=== PATIENT | male | born 1995 | race Two or more races ===

== ENCOUNTER 2023-05-24 17:14 | Emergency (ER) | payer BC ==
[2023-05-24 17:43] VITALS: BP 135/91; PULSE 100; RESP 16; TEMP 97.8; BMI 32.5
[2023-05-24] MEDS ORDERED: IBUPROFEN 600 MG TABLET (FP) PO ONE (18:11)
[2023-05-24] MEDS ORDERED: CYCLOBENZAPRINE HCL 10 MG TABLET (FP) ONE (18:11)
[2023-05-24] MEDS ORDERED: ACETAMINOPHEN 325 MG TABLET (FP) ONE (18:12)
[2023-05-24] MEDS: CYCLOBENZAPRINE HCL 10 MG TABLET (FP) PO ONE (18:21)
[2023-05-24] MEDS: IBUPROFEN 600 MG TABLET (FP) PO ONE (18:21)
[2023-05-24] MEDS: ACETAMINOPHEN 500 MG TABLET (FP) PO ONE (18:21)
[2023-05-24 18:26] LABS: BASO % 0.9 % (0-2.0); HEMOGLOBIN 16.8 GM/dL (11.7-16.9); LYMPH % 31.1 % (8-40); MCH 30.1 pg (25.7-33.7); MCHC 33.7 g/dl (32.0-35.9); MEAN CELL VOLUME 89.4 fl (80-96); MEAN PLT VOLUME 7.4 fl (7.5-11.1); MONO % 10.9 % (3.8-10.2); NEUT % 54.1 % (42.8-82.8); PLATELET COUNT 339 10^3/uL (134-434); RBC 5.59 M/mm3 (4.00-5.60); WHITE BLOOD COUNT 9.9 K/mm3 (4.0-10.0)
[2023-05-24 18:46] LABS: POTASSIUM 4.7 mmol/L (3.5-5.1)
[2023-05-24 18:47] LABS: CALCIUM 9.2 mg/dL (8.5-10.1)
[2023-05-24 18:48] LABS: BLOOD UREA NITROGEN 15.2 mg/dL (7-18)
[2023-05-24 18:51] LABS: CREATININE 1.3 mg/dL (0.55-1.3)
== END 2023-05-24 19:13 | disposition home or self-care (01) ==
LOC: JER 17:14
DX: R07.2 Precordial pain (principal)
CPT/HCPCS: 36415; 71046-TC-FY; 80048; 84484; 85025; 93005; 93010; 99285-25

== ENCOUNTER 2023-09-16 03:54 | Emergency (ER) | payer BC ==
[2023-09-16 04:06] VITALS: BP 143/93; PULSE 92; RESP 18; TEMP 97.8; BMI 41.3
[2023-09-16] MEDS ORDERED: LIDOCAINE 2.5%/PRILOCAINE 2.5% (5 Gram/TUBE) TP ONE (04:53)
[2023-09-16] MEDS: LIDOCAINE 2.5%/PRILOCAINE 2.5% 30 GRAM TUBE TP ONE (04:56)
== END 2023-09-16 04:57 | disposition home or self-care (01) ==
LOC: JER 03:54
DX: K64.4 Residual hemorrhoidal skin tags (principal); K59.00 Constipation, unspecified
CPT/HCPCS: 99283-25